=== PATIENT | male | born 1960 | race Caucasian/White ===

== ENCOUNTER 2018-03-31 05:38 | Inpatient (IN) ==
[2018-03-31] MEDS ORDERED: ceFAZolin 1,000 MG in SYRINGE 1 EACH IV ONE (06:00)
[2018-03-31] MEDS ORDERED: VANCOMYCIN INJ 1,000 MG in SODIUM CHLORIDE 0.9% 250 ML IV ONE (06:00)
[2018-03-31] MEDS ORDERED: DIAZEPAM 5 MG TABLET PO ONE (06:50)
[2018-03-31] MEDS ORDERED: FAMOTIDINE 20 MG TABLET PO ONE (06:50)
[2018-03-31] MEDS ORDERED: LACTATED RINGERS 1,000 ML IV SCH (07:00)
[2018-03-31] MEDS ORDERED: ROPIVACAINE 0.5% 30 ML VIAL ONE (07:10)
[2018-03-31] MEDS ORDERED: ceFAZolin 1,000 MG VIAL ONE (07:20)
[2018-03-31] MEDS ORDERED: VANCOMYCIN 1,000 MG VIAL ONE (07:20)
[2018-03-31] MEDS ORDERED: DIAZEPAM 5 MG TABLET ONE (07:21)
[2018-03-31] MEDS ORDERED: FAMOTIDINE 20 MG TABLET ONE (07:21)
[2018-03-31] MEDS ORDERED: GLYCOPYRROLATE 0.4 MG/2 ML VIAL ONE ×2 (09:02→10:19)
[2018-03-31] MEDS ORDERED: TEMAZEPAM 7.5 MG CAPSULE PO PRN (09:59)
[2018-03-31] MEDS ORDERED: LACTULOSE 20 GM/30 ML UDCUP PO PRN (09:59)
[2018-03-31] MEDS ORDERED: PROMETHAZINE 25 MG/1 ML VIAL IM PRN (09:59)
[2018-03-31] MEDS ORDERED: BISACODYL 10 MG SUPP RECTAL PRN (09:59)
[2018-03-31] MEDS ORDERED: MORPHINE 4 MG/1 ML VIAL IV PRN ×2 (09:59→14:14)
[2018-03-31] MEDS ORDERED: diphenhydrAMINE CAP 25 MG CAPSULE PO PRN (09:59)
[2018-03-31] MEDS ORDERED: ONDANSETRON 4 MG/2 ML VIAL IV PRN ×2 (09:59→10:33)
[2018-03-31] MEDS ORDERED: DEXTROSE 50% 25 GM/50 ML SYRINGE IV PRN (10:02)
[2018-03-31] MEDS ORDERED: GLUCAGON 1 MG VIAL IM PRN (10:02)
[2018-03-31] MEDS ORDERED: fentaNYL 100 MCG/2 ML VIAL ONE (10:19)
[2018-03-31] MEDS ORDERED: DEXAMETHASONE 10 MG/1 ML VIAL ONE (10:19)
[2018-03-31] MEDS ORDERED: PROPOFOL 200 MG/20 ML VIAL IV ONE (10:19)
[2018-03-31] MEDS ORDERED: SEVOFLURANE 1 UNIT/15 MINUTE INH ONE (10:19)
[2018-03-31] MEDS ORDERED: MIDAZOLAM 2 MG/2 ML VIAL ONE (10:19)
[2018-03-31] MEDS ORDERED: ACETAMINOPHEN 1,000 MG/100 ML VIAL IV ONE (10:19)
[2018-03-31] MEDS ORDERED: ROCURONIUM 100 MG/10 ML VIAL IV ONE (10:20)
[2018-03-31] MEDS ORDERED: NEOSTIGMINE 10 MG/10 ML VIAL ONE (10:20)
[2018-03-31] MEDS ORDERED: PHENYLEPHRINE 1 MG/10 ML SYRINGE IV ONE (10:20)
[2018-03-31] MEDS ORDERED: LACTATED RINGERS 1,000 ML IV ONE (10:20)
[2018-03-31] MEDS: HYDROmorphone 2 MG/1 ML VIAL IV PRN ×4 (10:50→13:25)
[2018-03-31] MEDS: INSULIN REGULAR 100 UNIT/ML SUBCUT SCH ×3 (16:11→21:13)
[2018-03-31] MEDS: ceFAZolin 2,000 MG in PREMIX 1 EACH IV SCH (17:19)
[2018-03-31] MEDS: FONDAPARINUX 2.5 MG/0.5 ML SYRINGE SUBCUT SCH (21:11)
[2018-03-31] MEDS: DOCUSATE SODIUM 100 MG CAPSULE PO SCH (21:12)
[2018-04-01] MEDS: ceFAZolin 2,000 MG in PREMIX 1 EACH IV SCH (01:15)
[2018-04-01 06:27] LABS: Basophils % 0.2 % (0.0-0.8); Eosinophils % 0.2 % (0.00-10.9); Hematocrit 38.6 VOL% (42.0-52.0); Hemoglobin 12.9 GM/DL (14.0-18.0); Immature Granulocytes % 0.6 %; Immature Granulocytes Absolute 0.08 #; Lymphocytes # 1.6 10*3/uL (1.4-4.0); Lymphocytes % 11.3 % (21.2-54.2); Mean Corpuscular HGB Conc 33.4 GM/DL (32-36); Mean Corpuscular Hemoglobin 31 PG (27-34); Mean Corpuscular Volume 91.7 FL (87-102); Mean Platelet Volume 10.1 FL (9.6-12.0); Monocytes # 1.4 10*3/uL (0.11-0.8); Monocytes % 9.7 % (1.7-12.7); Platelet Count 198 T/CUMM (130-400); Red Blood Count 4.21 MC/CUMM (3.8-5.5); Red Cell Distribution Width 12.5 % (9.3-17.3); White Blood Count 14.1 T/CUMM (4-12)
[2018-04-01 06:49] LABS: Calcium 8.4 MG/DL (8.5-10.1); Osmolality,Calculated 277.8 MOS/KG (273-304)
[2018-04-01] MEDS: INSULIN REGULAR 100 UNIT/ML SUBCUT SCH ×4 (07:57→21:28)
[2018-04-01] MEDS: MELOXICAM 7.5 MG TABLET PO SCH (08:33)
[2018-04-01] MEDS: DOCUSATE SODIUM 100 MG CAPSULE PO SCH ×2 (08:33→21:27)
[2018-04-01] MEDS: LOSARTAN 50 MG TABLET PO SCH (08:34)
[2018-04-01] MEDS: LOSARTAN/HCTZ 50-12.5 MG TABLET PO SCH (08:35)
[2018-04-01] MEDS: metFORMIN 500 MG TABLET PO SCH (08:35)
[2018-04-01] MEDS: FONDAPARINUX 2.5 MG/0.5 ML SYRINGE SUBCUT SCH (21:27)
[2018-04-02] MEDS: INSULIN REGULAR 100 UNIT/ML SUBCUT SCH ×4 (07:25→21:00)
[2018-04-02] MEDS: LOSARTAN/HCTZ 50-12.5 MG TABLET PO SCH (08:16)
[2018-04-02] MEDS: DOCUSATE SODIUM 100 MG CAPSULE PO SCH ×2 (08:17→21:00)
[2018-04-02] MEDS: MAGNESIUM HYDROXIDE SUSP 30 ML UDCUP PO PRN ×2 (08:17→21:00)
[2018-04-02] MEDS: LOSARTAN 50 MG TABLET PO SCH (08:17)
[2018-04-02] MEDS: MELOXICAM 7.5 MG TABLET PO SCH (08:17)
[2018-04-02] MEDS: metFORMIN 500 MG TABLET PO SCH (08:17)
[2018-04-02] MEDS: FONDAPARINUX 2.5 MG/0.5 ML SYRINGE SUBCUT SCH (21:00)
[2018-04-03] MEDS: MAGNESIUM HYDROXIDE SUSP 30 ML UDCUP PO PRN (05:51)
[2018-04-03] MEDS: INSULIN REGULAR 100 UNIT/ML SUBCUT SCH ×2 (07:32→11:06)
[2018-04-03 07:46] VITALS: BP 143/53
[2018-04-03] MEDS: MELOXICAM 7.5 MG TABLET PO SCH (08:35)
[2018-04-03] MEDS: DOCUSATE SODIUM 100 MG CAPSULE PO SCH (08:35)
[2018-04-03] MEDS: LOSARTAN 50 MG TABLET PO SCH (08:35)
[2018-04-03] MEDS: metFORMIN 500 MG TABLET PO SCH (08:35)
[2018-04-03] MEDS: LOSARTAN/HCTZ 50-12.5 MG TABLET PO SCH (08:35)
[2018-04-03] MEDS: FONDAPARINUX 2.5 MG/0.5 ML SYRINGE SUBCUT SCH (08:51)
== END 2018-04-03 11:07 | disposition home health service (06) | DRG 470 ==
LOC: N.OR 05:38 → N.SDSINP 05:39 → N.3E 09:59
PROVIDERS: ADMIT Orthopaedic Surgery; ATTEND Orthopaedic Surgery